=== PATIENT | female | born 1970 | race African-American/Black ===

== ENCOUNTER 2025-02-06 10:25 | Outpatient (AMB) | payer MEDICARE, MEDICAID, SELFPAY ==
--- NOTE | 2025-02-06 10:27 | A.OFFPC_ITS ---
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: No Accompanied by: Self / Same As Patient Allergies insulin lispro Allergy (Mild, Verified 02/06/25 10:34) swollen eye cat Allergy (Mild, Uncoded 02/06/25 10:34) swollen eyes Tobacco use date assessed: 02/06/25 Dental Screening Dental Screen Date: 02/06/25 Did you have a dental visit in the last 12 months?: Yes Did you have a dental problem in the last 6 months where you did not have access to dental care?: No Was dental information given to patient?: Patient has dentist HPI HPI Comments History of Present Illness Details History of Present Illness The patient is a 54-year-old female presenting for an initial visit to establish care. Type 2 Diabetes Mellitus: - Diagnosed at age 29, managed with metf ormin , which caused adverse effects leading to discontinuation two months ago. - Currently managing diabetes naturally, reports no pain since stopping medication. - No recent hospitalizations or complica tions reported. Elevated Blood Pressure: - Noted during the visit, attributed to nervousness due to new environment. - Patient monitors blood pressure at [facility], reports normal readings. Preventative Care: - Completed colon cancer screening with Cologuard last year, next due in two years. - Completed breast cancer screening with mammogram last year, next due next year. - Completed cervical cancer screening wi Pap smear last year, results were normal. Review of Systems - Cardiovascular: Denies chest pain, rep orts elevated heart rate due to nervousness. - Endocrine: Reports type 2 diabetes aj litus, currently managed naturally. - Gastrointestinal: Denies constipation, regular bowel movements. - Genitourinary: Reports regular menstru al cycles. - Neurological: Denies sleep disturbance s, reports good sleep quality. 10-point ROS reviewed and negative excep t as noted in HPI Past Medical History - Type 2 Diabetes Mellitus, diagnosed at age 29. - No history of surgeries. - Allergies: Insulin Lispro, Cats. Health Maintenance - Colon cancer screening with Cologuard completed last year, next due in two years. - Breast cancer screening with mammogram completed last year, next due next year. - Cervical cancer screening with Pap sme ar completed last year, results normal. - Regular eye examinations, last seen year. Physical Exam General: Well-appearing, in no acute distress. Vital signs: Elevated blood pressure, heart rate at 114. HEENT: Normocephalic, atraumatic. PERRLA, EOMI. Conjunctiva clear, sclera anicteric. Oropharynx clear, mucous membranes moist. TMs intact bilaterally. Ear canals small but not clogged. Neck: Supple, no lymphadenopathy, no thyromegaly, no JVD or carotid bruits. Cardiovascular: RRR, normal S1/S2, no murmurs, rubs, or gallops. Peripheral pulses 2+ and symmetric. No edema. Respiratory: Lungs clear to auscultation bilaterally, no wheezes, rales, or rhonchi. Normal effort. Abdomen: Soft, non-tender, non-distended. Normoactive bowel sounds. No hepatosplenomegaly, no masses. MSK: Full range of motion, no joint swelling or deformity. Normal gait. Skin: Warm, dry, intact. No rashes, lesions, or pallor. Neuro: Alert and oriented x3. Cranial nerves II-XII intact. Strength 5/5 throughout. Sensation intact. Reflexes 2+ symmetric. Normal coordination and gait. Psych: Appropriate mood and affect. Normal judgment and insight. Plan 1. Type 2 diabetes mellitus without comp lications E11.9 HCC 19 - Plan to obtain baseline labs including CBC, CMP, lipid panel, and microalbuminuria test. - Referral to fuel cell engineer and junior network administrator for dietary and diabetes management education. 2. Elevated blood-pressure reading, with out diagnosis of hypertension R03.0 - Monitor blood pressure at home, follow -up in two weeks to reassess. 3. Preventative Care - Continue regular screenings as schedul ed, including mammogram and Pap smear. - Referral to foot doctor for diabetic f oot care. Discussion Notes During the visit, I discussed the importance of managing type 2 diabetes through lifestyle modifications and regular monitoring. We reviewed the need for baseline laboratory tests to assess current health status. I emphasized the importance of regular screenings and referred the patient to a fuel cell engineer and junior network administrator for further management. We also discussed monitoring blood pressure at home and the plan for follow-up in two weeks. Patient was informed and verbally consented to the use of an ambient scribe for clinic note documentation during this visit. Patient Instructions - Continue monitoring blood pressure at home and record readings. - Follow up in two weeks for reassessmen t. - Schedule appointments with nutritionis t and junior network administrator. - Maintain regular health screenings as scheduled. [facility] Family History (Updated 02/06/25 @ 10:29 by Vickie Dasilva MA) Father No problems noted. Mother No problems noted. Social History (Updated 02/06/25 @ 10:29 by Vickie Dasilva MA) [facility] Alcohol intake: current Alcohol intake frequency: does not drink Patient Tobacco Use Status: Never used Tobacco service: No Current occupational status: employed Cognitive needs: No Hearing needs: No Vision needs: No Questionnaire PHQ-9 Over the last 2 weeks, how often have you been bothered by any of the following problems? 1. Little interest or pleasure in doing things: not at all 2. Feeling down, depressed, or hopeless: not at all 3. Trouble falling or staying asleep, or sleeping too much: not at all 4. Feeling tired or having little energy: not at all 5. Poor appetite or overeating: not at all 6. Feeling bad about yourself - or that you are a failure or have let yourself or your family down: not at all 7. Trouble concentrating on things, such as reading the newspaper or watching television: not at all 8. Moving or speaking so slowly that other people could have noticed. Or the opposite - being so fidgety or restless that you have been moving around a lot more than usual: not at all 9. Thoughts that you would be better off or of hurting yourself in some way: not at all Total score: 0 Depression Screening Interpretation: Negative Depression Screening Done: Yes Source: Developed by Drs. Brayan Barros, Michelle Eagle, Floyd Raza and colleagues, with an educational nickolas from [employer]. Thrive Questionnaire Date Thrive assessed: 02/06/25 I am a: Patient What is your living situation today?: I choose not to answer this question Within the past 12 months, did the food you bought not last and you didn't have the money to get more?: I choose not to answer this question Within the past 12 months, did you worry whether your food would run out before you got money to buy more?: I choose not to answer this question Do you have trouble paying for medicines?: No Do you have trouble getting transportation to medical appointments?: No Do you have trouble paying your heating and electricity bill?: No Do you have trouble taking care of your child, family member or friend?: No Are you currently unemployed and looking for a job?: No Are you interested in more education?: No Please select the resources that you would like help with: None Currently or been in a relationship where the following occur: I choose not to answer THRIVE Score: 0 AUDIT C Alcohol Use Questionnaire (AUDIT-C) 1. How often do you have a drink containing alcohol?: Never 3. How often do you have six or more drinks on one occasion?: Never Total Score: 0 Score Reviewed/Action Taken: No SANDIE-7 AMB Questionnaire SANDIE-7 Date SANDIE - 7 assessed: 02/06/25 Feeling nervous, anxious, or on edge: 0 = Not at all Not being able to stop or control worryin = Not at all Worrying too much about different things: 0 = Not at all Trouble relaxin = Not at all Being so restless that it is hard to sit still: 0 = Not at all Becoming easily annoyed or irritable: 0 = Not at all Feeling afraid as if something awful might happen: 0 = Not at all Total SANDIE-7 score (0-4 normal; 5-9 mild; 10-14 moderate; 15-21 severe): 0 Source: Developed by Drs. Brayan Barros, Michelle Eagle, Floyd Raza and colleagues, with an educational nickolas from [employer]. Physical exam (Primary Care) Tobacco/Smoking Status: Tobacco use Status Tobacco use date assessed 02/06/25 02/06/25 10:30 Patient Tobacco Use Status Never used Tobacco 02/06/25 10:30 PHQ-9: PHQ-9 Score PHQ-9: Total score 0 02/06/25 10:30 Depression Screening Interpretation: Negative Thrive Assessment: Date of Thrive Assessment Date Thrive assessed 02/06/25 02/06/25 10:30 Currently or been in a relationship where the following occur: I choose not to answer Coding Level of Care Code New Pt Level 3 (19914) Diagnoses Encounter to establish care Z76.89 Encounter for screening, unspecified Z13.9 Counseling, unspecified Z71.9 Screening for hypertension Z13.6 Screening for lipoid disorders Z13.220 Screening for depression Z13.31 Routine screening for STI (sexually transmitted infection) Z11.3 Diabetes type 2 E11.9 Assessment & Plan Assessment & Plan (1) Encounter to establish care: Code(s): Z76.89 - Persons encountering health services in other specified circumstances (2) Encounter for screening, unspecified: Code(s): Z13.9 - Encounter for screening, unspecified (3) Counseling, unspecified: Code(s): Z71.9 - Counseling, unspecified (4) Screening for hypertension: Code(s): Z13.6 - Encounter for screening for cardiovascular disorders (5) Screening for lipoid disorders: Code(s): Z13.220 - Encounter for screening for lipoid disorders (6) Screening for depression: Code(s): Z13.31 - Encounter for screening for depression (7) Routine screening for STI (sexually transmitted infection): Code(s): Z11.3 - Encounter for screening for infections with a predominantly sexual mode of transmission (8) Diabetes type 2: Code(s): E11.9 - Type 2 diabetes mellitus without complications Plan Orders: Orders Hepatitis B Surface Antigen Today Z13.9 - Encounter for screening, unspecified, Z76.89 - Persons encountering health services in other specified circumstances Lipid Panel Today Z13.9 - Encounter for screening, unspecified, Z76.89 - Persons encountering health services in other specified circumstances Magnesium Today Z13.9 - Encounter for screening, unspecified, Z76.89 - Persons encountering health services in other specified circumstances Vitamin B12 and Folate Today Z13.9 - Encounter for screening, unspecified, Z76.89 - Persons encountering health services in other specified circumstances Vitamin D 1,25 dihydroxy Today Z13.9 - Encounter for screening, unspecified, Z76.89 - Persons encountering health services in other specified circumstances Complete Blood Count Auto Diff Today Z13.9 - Encounter for screening, unspecified, Z76.89 - Persons encountering health services in other specified circumstances Comprehensive Met. Panel Today Z13.9 - Encounter for screening, unspecified, Z76.89 - Persons encountering health services in other specified circumstances Hemoglobin A1c Today Z13.9 - Encounter for screening, unspecified, Z76.89 - Persons encountering health services in other specified circumstances Hepatitis B Surface Antibody Today Z13.9 - Encounter for screening, unspecified, Z76.89 - Persons encountering health services in other specified circumstances Hepatitis C Antibody Today Z13.9 - Encounter for screening, unspecified, Z76.89 - Persons encountering health services in other specified circumstances HIV Ab/Ag Today Z13.9 - Encounter for screening, unspecified, Z76.89 - Persons encountering health services in other specified circumstances TSH reflex Free T4 Today Z13.9 - Encounter for screening, unspecified, Z76.89 - Persons encountering health services in other specified circumstances Microalbumin, Random (w Creat) Today Z13.9 - Encounter for screening, unspecified, Z76.89 - Persons encountering health services in other specified circumstances Referrals Ophthalmology Referral E11.9 - Type 2 diabetes mellitus without complications, Z13.9 - Encounter for screening, unspecified Nurse Navigator Referral E11.9 - Type 2 diabetes mellitus without complications Nutrition/Dietitian Referral E11.9 - Type 2 diabetes mellitus without complications Podiatry Referral E11.9 - Type 2 diabetes mellitus without complications, Z13.9 - Encounter for screening, unspecified
[2025-02-06 10:31] VITALS: BP 152/75; PULSE 114; RESP 16; TEMP 36.4; O2SAT 97; BMI 21.2
== END 2025-02-06 10:57 | disposition home or self-care (01) ==
LOC: HO.HMCFMS 10:26
PROVIDERS: PCP Student in an Organized Health Care Education/Training Program; Visit Provider Student in an Organized Health Care Education/Training Program
DX: Z00.00 Encounter for general adult medical examination without abnormal findings (principal); E11.9 Type 2 diabetes mellitus without complications

== ENCOUNTER 2025-02-06 10:25 | Outpatient (REF) | payer OTHER, SELFPAY ==
[2025-02-06 17:39] LABS: MANUAL DIFF FLAG NO
[2025-02-06 17:51] LABS: Hematocrit 37.9 % (37.0-47.0); Hemoglobin 11.7 g/dl (12.0-16.0); Imm Gran Abs Auto 0.01 X10*3/uL (0.00-0.03); Imm Gran Pct Auto 0.3 % (0.0-0.4); Lymphocytes Absolute Auto 1.2 X10*3/uL (1.2-4.9); Mean Corpuscular HGB Conc 30.9 g/dl (31.0-35.0); Mean Corpuscular Hemoglobin 24.9 pg (27.0-33.0); Mean Corpuscular Volume 80.6 fL (80.0-98.0); NRBC Abs Auto 0.000 X10*3/uL (0.0-0.012); NRBC Pct Auto 0.0 /100WBC (0.0-0.2); Platelet Count 286 X10*3/uL (160-400); Red Blood Count 4.70 X10*6/uL (4.20-5.50); White Blood Count 4.0 X10*3/uL (4.8-10.8)
[2025-02-06 18:12] LABS: Alanine Aminotransferase 23 U/L (0-31); Albumin Level 4.7 g/dL (3.5-5.0); Alkaline Phosphatase 88 U/L (39-117); Anion Gap 14 (12-20); Aspartate Amino Transferase 24 U/L (5-31); Blood Urea Nitrogen 11 mg/dL (9-16); Calcium 9.9 mg/dL (8.4-10.2); Carbon Dioxide 26 mmol/L (22-29); Chloride 101 mmol/L (96-108); Cholesterol 216 mg/dL (<200); Estimated Glomerular Filt Rate > 60; HDL Cholesterol 67 mg/dL (>40); Magnesium 1.8 mg/dL (1.6-2.6); Potassium 3.8 mmol/L (3.3-5.1); Sodium 137 mmol/L (135-145); Total Protein 7.9 g/dL (6.5-8.0); Triglycerides 92 mg/dL (<150)
[2025-02-06 18:23] LABS: Microalbum/Creatinine Ratio Ur 28.9 ug/mg cr (<30)
[2025-02-06 18:38] LABS: Folate 16.8 ng/mL (> or = 4.0); Vitamin B12 756 pg/mL (200-900)
[2025-02-07 06:00] LABS: HBS Num1 29.48 mIU/mL (0-7.99); HBsAGNum1 0.35 S/CO (0.00-0.99); HIV Num 1 0.06 S/CO (0.00-0.99); Hepatitis B Surface Antigen Negative (Negative); ~HepC Num1 0.11 S/CO (0.00-0.79); ~Hepatitis B Surface Antibody REACTIVE (Nonreactive); ~Hepatitis C Antibody Nonreactive (Nonreactive)
[2025-02-10 23:07] LABS: VITAMIN D (1,25 OH) D3 61 pg/mL; Vit D (1,25-Dihydroxy) Total 61 pg/mL (18-72); Vitamin D (1,25 OH) D2 <8 pg/mL
== END 2025-02-06 10:26 | disposition home or self-care (01) ==
LOC: HO.HKASLDS 10:25
PROVIDERS: PCP Student in an Organized Health Care Education/Training Program; Visit Provider Student in an Organized Health Care Education/Training Program
DX: Z76.89 Persons encountering health services in other specified circumstances (principal); Z13.9 Encounter for screening, unspecified; Z71.9 Counseling, unspecified; Z13.6 Encounter for screening for cardiovascular disorders; Z13.220 Encounter for screening for lipoid disorders; Z13.31 Encounter for screening for depression; Z11.3 Encounter for screening for infections with a predominantly sexual mode of transmission; E11.9 Type 2 diabetes mellitus without complications
CPT/HCPCS: 36415; 80053; 80061; 82043; 82570; 82607; 82652; 82746; 83036; 83735; 84443; 85025; 86706; 86803; 87340; 87389; 99386